=== PATIENT | male | born 1955 | race Caucasian/White ===

== ENCOUNTER 2016-09-16 06:23 | Day surgery (SDC) | payer BC ==
[2016-09-04 13:56] LABS: BASOPHILS 0.4 %; BASOPHILS ABSOLUTE 0.04 10/3/uL (0.0-0.16); EOSINOPHILS ABSOLUTE 0.64 10/3/uL (0.0-0.53); IMMATURE GRANULOCYTES 0.3 %; IMMATURE GRANULOCYTES ABSOLUTE 0.03 10/3/uL (0.0-0.11); LYMPHOCYTES 23.5 %; LYMPHOCYTES ABSOLUTE 2.16 10/3/uL (0.67-4.30); MEAN CORPUS HGB CONC 33.7 g/dL (32.0-36.0); MEAN CORPUSCULAR HEMOGLOB 29.9 pg (26.0-34.0); MEAN PLATELET VOLUME 9.7 fL (9.2-13.0); MONOCYTES 8.4 %; MONOCYTES ABSOLUTE 0.77 10/3/uL (0.21-1.20); NEUTROPHILS 60.4 %; NEUTROPHILS ABSOLUTE 5.56 10/3/uL (2.02-8.40); PLATELET COUNT 268 10/3/uL (150-400); RBC DISTRIBUTION WIDTH 13.1 % (12.0-16.0); WHITE BLOOD CELLS 9.2 10/3/uL (4.5-10.5)
[2016-09-04 14:00] LABS: HEMATOCRIT 42.7 % (40.0-51.0); HEMOGLOBIN 14.4 g/dL (13.6-17.8); MANUAL DIFF NO %; MEAN CORPUSCULAR VOLUME 88.6 fL (80-100); RED CELL COUNT 4.82 10/6/uL (4.7-6.1)
[2016-09-04 14:10] LABS: BUN (BLOOD UREA NITROGEN) 23 MG/DL (6-23); CALCIUM, SERUM 8.6 MG/DL (8.5-10.4); CHLORIDE, SERUM 108 MMOL/L (96-112); CO2 (CARBON DIOXIDE) 28 MMOL/L (24-34); CREATININE 1.49 MG/DL (0.70-1.30); GFR AFRICAN AMERICAN 58 ML/MIN (>=60); GFR NON AFRICAN AMERICAN 50 ML/MIN (>=60); GLUCOSE, SERUM 76 MG/DL (60-99); POTASSIUM, SERUM 4.4 MMOL/L (3.5-5.3); SODIUM, SERUM 141 MMOL/L (135-148)
--- NOTE | ~2016-09-16 | OP ---
Record Of Operation [facility] [address]. [address] NAME: LANETTE STAFFORD : 55 [place]US : [place] [facility] [place] [id number] AGE: 61 ADM/REG DATE : 09/16/16 MR#: [id number] REPORT SERV DATE: 09/16/16 DICTATED BY: JONH MENA DATE: 09/16/16 REPORT STATUS : Draft TRANSCRIBED BY: MODL DATE: 09/16/16 DATE OF PROCEDURE: 09/16/2016 PREOPERATIVE DIAGNOSIS: Recurrent bladder tumor (transitional cell carcinoma). POSTOPERATIVE DIAGNOSIS: Recurrent bladder tumor (transitional cell carcinoma). PROCEDURE: Cystoscopy, bladder biopsy x3, bilateral retrograde pyelograms, fulguration of bladder tumor x3. SURGEON: Jonh Mena M.D. ANESTHESIA: General. ESTIMATED BLOOD LOSS: Less than 5 mL. FLUID REPLACEMENT: None. DRAINS: 18-Cuban Mena catheter to be used for postoperative mitomycin installation. 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 He has had a left nephroureterectomy, as well as BCG therapy. FINDINGS: 1. Small bladder tumor at the dome. 2. A small bladder tumor, posterior wall of bladder. 3. Small bladder tumor inside the intramural remnant of the left ureter. TECHNIQUE: The patient was identified, brought to the operating room, administered general anesthetic agent by the Anesthesia Service and intubated. He was positioned in dorsal lithotomy position. The entire penis, groin, and scrotum were prepped and draped in usual sterile fashion. A 22-Cuban cystoscopic sheath with 30-degree lens was used for cystourethroscopy. The anterior and bulbus urethra were normal. The prostatic urethra was normal. The bladder was entered and surveyed, both with 30 and 70-degree lens. There was some papillary tumor growth inside a resected the left ureteral orifice. There was also a small bladder tumor (less than 5 mm) on the posterior wall of the bladder and then bladder tumor measuring approximately 1 cm on the dome of the bladder. Using a 5-Cuban open-ended catheter, a right retrograde pyelogram was obtained. It appeared normal. Using an 8-Cuban cone-tipped catheter, left retrograde pyelogram. It showed a very short intramural ureter measuring approximately 1 to 2 cm. It was somewhat irregular. Using the cold cup biopsy forceps, I biopsied the tumor on the posterior wall on the dome and at the left ureteral orifice. I sent all of these as labeled. I then used the [employer] Record Of Operation [place] [address] [place] [address] NAME: LANETTE STAFFORD : 55 STATUS : [place] [facility] [place] [id number] AGE: 61 ADM/REG DATE : 09/16/16 MR#: [id number] REPORT SERV DATE: 09/16/16 DICTATED BY: JONH MENA DATE: 09/16/16 REPORT STATUS : Draft TRANSCRIBED BY: MODL DATE: 09/16/16 electrode and cauterized the posterior wall dome remnant, and base. I switched to the 24-Cuban continuous flow resecting sheath which I placed the bladder with an obturator. The obturator was removed and the [employer] resectoscope and a [employer] knife was inserted. I opened the intramural ureter a bit more to expose it more. Really I did not see much else. I then switched back to the cystoscope, used a [employer]bee electrode and cauterized the remnant of the left intramural ureter. Fastidious hemostasis was achieved. I removed the cystoscope. I placed an 18-Cuban Mena catheter, irrigated until clear. It was left to drainage with 10 mL sterile water in the balloon. The patient was awakened and taken to the recovery room in stable and satisfactory condition. He will receive adjuvant mitomycin in the recovery room. PF/BELÉN Jonh Mnea M.D. / [id number] CC: Monica Anton M.D.
[~2016-09-16 06:23] MED LIST: AMB5 PO; DIL4TAB PO; FLOMAX4 PO; LORT7 PO; NORCO1 TA2 PO; T PO; X5 PO
== END 2016-09-16 14:22 | disposition home or self-care (01) ==
LOC: SDC 06:23
PROVIDERS: Urology
PROC: 0T5B8ZZ Destruction of Bladder, Via Natural or Artificial Opening Endoscopic (ICD-10-PCS; 2016-09-16)
PROC: 0TBB8ZX Excision of Bladder, Via Natural or Artificial Opening Endoscopic, Diagnostic (ICD-10-PCS; principal; 2016-09-16 07:45)
DX: C67.4 Malignant neoplasm of posterior wall of bladder (principal); C67.1 Malignant neoplasm of dome of bladder; C67.6 Malignant neoplasm of ureteric orifice; N18.9 Chronic kidney disease, unspecified; N40.0 Benign prostatic hyperplasia without lower urinary tract symptoms; N28.89 Other specified disorders of kidney and ureter; F17.290 Nicotine dependence, other tobacco product, uncomplicated; Z90.5 Acquired absence of kidney; Z79.899 Other long term (current) drug therapy; Z98.890 Other specified postprocedural states; Z92.21 Personal history of antineoplastic chemotherapy
CPT/HCPCS: 74420; 80048; 85025; 88305; 88344; 93005; A9270-GY; C1758; J2250; J2405; J2710; J3010; J9280; Q9967